=== PATIENT | male | born 1985 | race Caucasian/White ===

== ENCOUNTER 2017-08-08 10:08 | Observation (INO) | payer OTHER ==
--- NOTE | 2017-08-08 12:33 | RAD ---
INDICATION: Pain and swelling right leg. COMPARISON: Correlation is made with a prior study from November 26, 2014. TECHNIQUE: Multiple real-time, color flow and Doppler tracings of the right lower extremity were obtained. FINDINGS: The right common femoral profunda femoral and femoral veins are all partially compressible with peripheral thrombus possibly chronic although an acute component cannot be excluded. The popliteal and posterior tibial veins appear patent without thrombus. One of the peroneal veins appears occluded. On examining the left common femoral vein for comparison note is made of partially occlusive thrombus extends into the profunda femoral and femoral veins. The proximal and mid femoral veins are occluded which has progressed from the prior study. The popliteal vein is patent. The calf veins are not well visualized. IMPRESSION: EXTENSIVE BILATERAL LOWER EXTREMITY DEEP VENOUS THROMBUS DESCRIBED INVOLVING A LARGE PART OF THE DEEP VENOUS SYSTEM. SOME OF THIS APPEARS CHRONIC ALTHOUGH THERE IS PROGRESSION IN THE LEFT FEMORAL VEIN SUGGESTING AN ACUTE COMPONENT.
[2017-08-08 15:59] LABS: ABS Basophils 0 10^3/ul (0-0.2); ABS Eosinophils 0.1 10^3/ul (0-0.6); ABS Lymphocytes 1.1 10^3/ul (1.0-4.8); ABS Monocytes 0.3 10^3/ul (0-0.8); ABS Neutrophils 2.2 10^3/ul (1.5-7.7); ABS Nucleated RBC 0 10^3/ul; Eosinophil % 3.5 % (0-6); Hematocrit 42 % (42-52); Lymphocyte % 29.7 % (25-47); Mean Corpuscular HGB Conc 34 g/dl (31-36); Mean Corpuscular Hemoglobin 32 pg (27-31); Mean Corpuscular Volume 94 fL (80-94); Nucleated Red Blood Cells % 0.1; Platelet Count 133 10^3/ul (150-450); Red Blood Count 4.43 10^6/ul (4.0-5.4); Red Cell Distribution Width 14 % (10.5-15); White Blood Count 3.9 10^3/ul (3.5-10.8)
[2017-08-08] MEDS ORDERED: Acetaminophen TAB* 325 MG PO PRN (16:08)
[2017-08-08] MEDS ORDERED: Ondansetron ODT TAB* 4 MG SL PRN (16:09)
[2017-08-08 16:12] LABS: INR 1.02 (0.77-1.02)
[2017-08-08 16:24] LABS: EGFR Non-African American 107.3 (>60)
[2017-08-08] MEDS ORDERED: Iohexol 350* (CONTRAST) 500 ML MDV IV ONE (16:26)
[2017-08-08] MEDS ORDERED: Warfarin TAB(*) 5 MG PO SCH (17:00)
--- NOTE | 2017-08-08 17:16 | RAD ---
HISTORY: Shortness of breath, DVT COMPARISONS: None TECHNIQUE: Multiple contiguous axial CT scans of the chest were obtained after the administration of nonionic intravenous contrast, timed to the pulmonary arterial phase of contrast enhancement.. Coronal and sagittal multiplanar reformations are also submitted for review. FINDINGS: NECK AND THYROID: The lower neck and thyroid are unremarkable. CHEST WALL: There is no lower cervical, axillary, or supraclavicular lymphadenopathy by size criteria. HEART AND PERICARDIUM: The heart is unremarkable. AORTA AND PULMONARY VASCULATURE: There is no pulmonary arterial filling defect to suggest pulmonary embolism. There is no linear filling defect within the aorta to suggest aortic dissection. MEDIASTINUM: There is no mediastinal lymphadenopathy by size criteria. SOFIA: There is no hilar lymphadenopathy by size criteria. AIRWAY AND ESOPHAGUS: The airway is unremarkable, without endobronchial filling defect. The esophagus is grossly normal. LUNG PARENCHYMA: The lungs are clear. PLEURA: No pleural abnormalities are noted. UPPER ABDOMEN: The upper abdomen is unremarkable. BONES AND SOFT TISSUES: No bone or soft tissue abnormalities are noted. OTHER: None. IMPRESSION: NO PULMONARY ARTERIAL FILLING DEFECT TO SUGGEST PULMONARY EMBOLISM.
--- NOTE | 2017-08-08 17:58 | ED ---
Eliezer Bhatt Stephanie, scribed for Tyree Salcido MD on 08/08/17 at 1132 . Lower Extremity - HPI Summary HPI Summary: The pt is a 32 y/o M [facility] [employer] to the ED with c/o R LE pain that began on 08/03/17. Symptoms include R LE edema and bilateral LE skin discoloration and redness. The pt states he has hx of DVT. His symptoms have been chronic and have gotten progressively worse over the past few years. He states he has hx of 18 blood clots in 12 years. - History of Current Complaint Chief Complaint: EDExtremityLower Stated Complaint: RT LOWER EXTREMITY SWELLING Time Seen by Provider: 08/08/17 11:07 Hx Obtained From: Patient Onset of Pain: Days Onset/Duration: Days Severity Currently: Moderate Pain Intensity: 6 Pain Scale Used: 0-10 Numeric Timing: Constant Location: Is Discrete @ - LE bilaterally Associated Signs And Symptoms: Positive: Swelling, Redness, Other - discoloration Aggravating Factor(s): Ambulation Alleviating Factor(s): Elevation Able to Bear Weight: Yes - Allergies/Home Medications Allergies/Adverse Reactions: Allergies Allergy/AdvReac Type Severity Reaction Status Date / Time diphtheria toxoid,fluid Allergy Anaphylatic Verified 08/08/17 11:58 Shock Penicillins Allergy Unknown Verified 08/08/17 11:58 Reaction Details Pertussis Vaccines Allergy Anaphylatic Verified 08/08/17 11:58 Shock Home Medications: Home Medications Amitriptyline TAB* [Elavil TAB*] 50 mg PO BEDTIME 08/08/17 [History Confirmed ] Apixaban* [Eliquis*] 5 mg PO BID 08/08/17 [History Confirmed 08/08/17] PMH/Surg Hx/FS Hx/Imm Hx Endocrine/Hematology History: Denies: Hx Diabetes Cardiovascular History: Denies: Hx Congestive Heart Failure Sensory History: Denies: Hx Legally Blind EENT History: Denies: Hx Deafness Infectious Disease History: Yes Infectious Disease History: Denies: Traveled Outside the [place] in Last 30 Days - Family History Known Family History: Negative: Renal Disease - Social History Occupation: Unemployed Lives: Prison [facility] correction[facility] facility Alcohol Use: None Alcohol Amount: hx alcohol abuse Hx Substance Use: No Substance Use Type: Reports: None Hx Tobacco Use: Yes Smoking Status (MU): Former Smoker Review of Systems Negative: Fever Positive: Edema - R LE, Other - LE redness and discoloration Negative: Slurred Speech All Other Systems Reviewed And Are Negative: Yes Physical Exam - Summary Physical Exam Summary: Appearance: The patient is well-nourished in no acute distress and in no acute pain. Skin: The skin is warm and dry and skin color reflects adequate perfusion. HEENT: The head is normocephalic and atraumatic. The pupils are equal and reactive. The conjunctivae are clear and without drainage. Nares are patent and without drainage. Mouth reveals moist mucous membranes and the throat is without erythema and exudate. The external ears are intact. The ear canals are patent and without drainage. The tympanic membranes are intact. Neck: the neck is supple with full range of motion and non-tender. There are no carotid bruits. There is no neck vein distension. Respiratory: Chest is non-tender. Lungs are clear to auscultation and breath sounds are symmetrical and equal. Cardiovascular: Heart is regular rate and rhythm. There is no murmur or rub auscultated. There is no peripheral edema and pulses are symmetrical and equal. Abdomen: The abdomen is soft and non-tender. There are normal bowel sounds heard in all four quadrants and there is no organomegaly palpated. Musculoskeletal: There is no back tenderness noted. Extremities are non-tender with full range of motion. He has chronic venous stasis changes in his bilateral LE, healed ulcers, bounding dorsalis pedis pulses bilaterally, pitting edema on R LE. Neurological: Patient is alert and oriented to person, place and time. The patient has symmetrical motor strength in all four extremities. Cranial nerves are grossly intact. Deep tendon reflexes are symmetrical and equal in all four extremities. Psychiatric: The patient has an appropriate affect and does not exhibit any anxiety or depression. Triage Information Reviewed: Yes Vital Signs On Initial Exam: Initial Vitals Temp Pulse Resp BP Pulse Ox 97.9 F 70 16 117/85 98 08/08/17 10:15 08/08/17 10:15 08/08/17 10:15 08/08/17 10:15 08/08/17 10:15 Vital Signs Reviewed: Yes Diagnostics - Vital Signs Vital Signs Temp Pulse Resp BP Pulse Ox 08/08/17 11:13 74 98 08/08/17 10:15 97.9 F 70 16 117/85 98 - Laboratory Lab Results: Lab Results 08/08/17 08/08/17 08/08/17 Range/Units 15:50 15:50 15:50 WBC 3.9 (3.5-10.8) 10^3/ul RBC 4.43 (4.0-5.4) 10^6/ul Hgb 14.0 (14.0-18.0) g/dl Hct 42 (42-52) % MCV 94 (80-94) fL MCH 32 H (27-31) pg MCHC 34 (31-36) g/dl RDW 14 (10.5-15) % Plt Count 133 L (150-450) 10^3/ul MPV 9.0 (7.4-10.4) um3 Neut % (Auto) 57.9 (38-83) % Lymph % (Auto) 29.7 (25-47) % [place] % (Auto) 8.4 H (0-7) % Eos % (Auto) 3.5 (0-6) % Baso % (Auto) 0.5 (0-2) % Absolute Neuts (auto) 2.2 (1.5-7.7) 10^3/ul Absolute Lymphs (auto) 1.1 (1.0-4.8) 10^3/ul Absolute Monos (auto) 0.3 (0-0.8) 10^3/ul Absolute Eos (auto) 0.1 (0-0.6) 10^3/ul Absolute Basos (auto) 0 (0-0.2) 10^3/ul Absolute Nucleated RBC 0 10^3/ul Nucleated RBC % 0.1 INR (Anticoag Therapy) 1.02 (0.77-1.02) Sodium 140 (139-145) mmol/L Potassium 3.6 (3.5-5.0) mmol/L Chloride 102 (101-111) mmol/L Carbon Dioxide 31 (22-32) mmol/L Anion Gap 7 (2-11) mmol/L BUN 16 (6-24) mg/dL Creatinine 0.84 (0.67-1.17) mg/dL Est GFR ( Amer) 138.0 (>60) Est GFR (Non-Af Amer) 107.3 (>60) BUN/Creatinine Ratio 19.0 (8-20) Glucose 104 H (70-100) mg/dL Calcium 9.6 (8.6-10.3) mg/dL Total Bilirubin 0.80 (0.2-1.0) mg/dL AST 27 (13-39) U/L ALT 17 (7-52) U/L Alkaline Phosphatase 61 (34-104) U/L Total Protein 7.1 (6.4-8.9) g/dL Albumin 4.3 (3.2-5.2) g/dL Globulin 2.8 (2-4) g/dL Albumin/Globulin Ratio 1.5 (1-3) Result Diagrams: 08/08/17 15:50 08/08/17 15:50 Lab Statement: Any lab studies that have been ordered have been reviewed, and results considered in the medical decision making process. - Additional Comments Diagnostic Additional Comments: Venous Doppler Study reveals: EXTENSIVE BILATERAL LOWER EXTREMITY DEEP VENOUS THROMBUS DESCRIBED INVOLVING A LARGE PART OF THE DEEP VENOUS SYSTEM. SOME OF THIS APPEARS CHRONIC ALTHOUGH THERE IS PROGRESSION IN THE LEFT FEMORAL VEIN SUGGESTING AN ACUTE COMPONENT. ED physician has reviewed this report. Re-Evaluation - Re-Evaluation First Eval Re-Evaluation Time: 15:18 Change: Unchanged - ED physician discussed plan of admission with the pt. Lower Extremity Course/Dx - Course Course Of Treatment: Mr. Ayon appears on U/S to be extending his DVT while on elliquis. The hospitalist service is seeing him for admission at this time. - Diagnoses Provider Diagnoses: DVT (deep venous thrombosis) - Physician Notifications Discussed Care Of Patient With: Erwin Lu Time Discussed With Above Provider: 15:20 Instructed by Provider To: Admit As Inpatient Discharge - Sign-Out/Discharge Documenting (check all that apply): Discharge/Admit/Transfer - Admit - Discharge Plan Condition: Stable Disposition: ADMITTED TO [facility] Referrals: Lorena Lei [Primary Care Provider] - - Billing Disposition and Condition Condition: STABLE [place] [facility] [place] The documentation as recorded by the Eliezer barnes Stephanie accurately reflects the service I personally performed and the decisions made by , Tyree Salcido MD.
[2017-08-08] MEDS: Enoxaparin(*) 80 MG/0.8 ML SYR SUBCUT SCH (19:56)
[2017-08-08] MEDS ORDERED: Amitriptyline TAB* 50 MG PO SCH (21:00)
[2017-08-08] MEDS ORDERED: Enoxaparin(*) 80 MG/0.8 ML SYR SUBCUT SCH (21:00)
--- NOTE | 2017-08-09 02:11 | HP ---
AMENDED REPORT NOW INCLUDES COSIGNER DESIGNATION CC: Providers at [facility]; ASAD Lei HISTORY AND PHYSICAL: DATE OF ADMISSION: 08/08/17 ATTENDING PHYSICIAN: Dr. Lu * (dictation provided by Mikayla Aguilar NP). CHIEF COMPLAINT: Shortness of breath and pain in bilateral lower extremities. HISTORY OF PRESENT ILLNESS: Mr. Aoyn is a 32-year-old male with a past medical history of DVT starting at age 21 with recurrent DVT approximately 8 times over the past 11 years. He reports that he had been on warfarin, but did not like being "poked with needles." He was then transitioned over to Xarelto in 2014. He was off of medication for a period of time due to problems with alcoholism and he is now at [facility]. He was put on Eliquis on 06/12/17. He states that he has been taking that regularly as monitored by the [facility]'s medical staff. His last dose was this morning. He reports that over the past week or so, he has been noting a little bit more pain in his right lower extremity, but he thought this was just secondary to increased activity level as part of [facility]' s exercising program. Yesterday was outside and when he came in, he felt more short of breath than usual and then began to have pain in his right lower extremity radiating from his calf up into his thigh consistent with his previous history of DVT. He reports no further shortness of breath since that episode. He has had no chest pain. He denies any nausea, vomiting, diarrhea, abdominal pain. He has been eating and drinking normally. In the emergency room, Mr. Ayon had a venous Doppler study which is read in comparison with his previous venous Doppler from our facility in 2014. The patient states that this was his last venous Doppler. Today's study shows "extensive bilateral lower extremity deep venous thrombosis as described involving a large part of the deep venous system. Some of this appears chronic although there is progression in the left femoral vein suggesting an acute component." His labs were unremarkable. His vital signs are stable. He is not tachycardic. PAST MEDICAL HISTORY: 1. DVTs. 2. Multilple venous ulcers bilateral lower extremities, now healed. MEDICATIONS: Are: 1. Eliquis 5 mg p.o. b.i.d. 2. Amitriptyline 50 mg p.o. at bedtime. ALLERGIES: DIPHTHERIA TOXOID, PENICILLINS, and PERTUSSIS VACCINE. FAMILY HISTORY: The patient reports that his mother related to lung cancer. His dad is alive and well. His family has never known of any other members who have had problems with unusual clotting. SOCIAL HISTORY: The patient is about a quarter pack a day smoker. He was an alcoholic, but is now incarcerated. He has reported drug use in the past. He has one daughter; she is 9 years old. She has no history of clotting disorders as far as he is aware. REVIEW OF SYSTEMS: A 14-point review of systems was completed with Mr. Ayon and all those not mentioned above were negative including no cough and no hemoptysis. PHYSICAL EXAMINATION GENERAL: Mr. Ayon is sitting in the bed with his guards at the bedside. He is in no acute distress. VITAL SIGNS: Temperature 97.9, pulse rate is 78, respiratory rate is 16, O2 saturation 94% on room air, blood pressure 126/85. LUNGS: Clear to auscultation bilaterally with no accessory muscle use and good aeration. HEART: S1, S2. No murmur, rub, or gallop and regular. ABDOMEN: Soft and nontender with bowel sounds positive x4. EXTREMITIES: No cyanosis. Positive for what appeared to be venous stasis changes and multiple areas of scarring with edema on bilateral lower extremities extending from the foot up to approximately three quarters way up the calf. The patient states that this is all at baseline with no change. The patient has no tenderness to palpation on either extremity. No warmth. No apparent asymmetrical swelling. NEURO: He is alert, he is oriented x3. He moves all extremities equally. There is no facial asymmetry or focal weakness. Extraocular movements are intact. DIAGNOSTIC STUDIES/LAB DATA: WBC 3.9, hemoglobin 14.0, hematocrit 42, platelet count 133. INR of 1.02. Sodium 140, potassium 3.6, chloride 102, serum bicarbonate 31, BUN 16, creatinine 0.84, glucose 104. ASSESSMENT: Mr. Ayon is a 32-year-old male with a past medical history of multiple deep venous thrombosis with no known clotting problem, who presents to the hospital today with concern for failure of Eliquis therapy and worsening symptoms of deep venous thrombosis confirmed with likely extension of DVT in the left femoral vein. Our plans are for observation in the hospital for the followin. Deep venous thrombosis. The patient has had a failure of Eliquis therapy in a monitored setting. He will need to switch back to warfarin and in the meantime, he will need bridging therapy. I have spoken with Dr. Benavidez from Hematology and he confirms that the patient would be appropriate for Lovenox therapy. I will start Lovenox therapy now at his recommendation. He states that it would be reasonable to wait at least 6 hours from the patient's last dose of Eliquis. Plan to start lovenox at 5 p.m. today. He will also start warfarin 5 mg today. The patient states that he was therapeutic on 5 mg in the past. The patient states that he has never had a full hematology workup. He was seen by a physician at [facility] one time and did have labs drawn at that point, but he was not able to follow up with that physician. At this point , we have ordered labs that are not affected by anticoagulant usage including antithrombin activity, antithrombin antigen, prothrombin, antiphospholipid antibody, and factor V Leiden. The patient would be recommended to follow up with Dr. Benavidez at discharge from the facility for further evaluation hematologically. At this point, the patient is chest pain free. He is not short of breath. His vitals are stable; however, he did complain of shortness of breath at the beginning of this more acute episode yesterday after activity. I think given his extensive DVT, he warrants a CTA of the chest and that has been ordered as this would help with prognostication if he were to have a greater embolism load in the lung. 2. DVT prophylaxis again with Lovenox and warfarin. 3. Code status is full code. TIME SPENT: Approximately 60 minutes was spent on the admission of this patient ; more than half time was spent with the patient at the bedside reviewing the events leading up to this hospitalization, performing the physical examination, and reviewing my plan of care. MIKAYLA AGUILAR NP [id number]/[facility] #: [id number] DAVIDE
[2017-08-09] MEDS: Enoxaparin(*) 80 MG/0.8 ML SYR SUBCUT SCH (05:25)
[2017-08-09 11:22] VITALS: BP 102/61
--- NOTE | 2017-08-10 01:12 | DS ---
CC: [facility], Lorena Lei NP; Dr. Benavidez DISCHARGE SUMMARY: DATE OF ADMISSION: 08/08/17 DATE OF DISCHARGE: 08/09/17 PRIMARY CARE PROVIDER: [facility], Lorena Lei NP. [employer] SENIOR SPECIALIST: Dr. Benavidez. DISCHARGE DIAGNOSIS: Recurrent bilateral deep venous thromboses. SECONDARY DIAGNOSES: 1. Prior history of deep venous thromboses and multiple venous insufficiency ulcers on bilateral low er extremities. 2. Eliquis failure. MEDICATION LIST: Amitriptyline 50 mg p.o. at bedtime. NEW MEDICATIONS: 1. Lovenox 80 mg subcutaneously q.12 hours for at least 5 days until INR greater than 2 for 48 hours . 2. Warfarin 5 mg p.o. daily adjusted according to his INR. 3. Acetaminophen 650 mg p.o. q.6 hours p.r.n. pain. HOSPITAL COURSE: Mr. Ayon is a 32-year-old male with past medical history as stated above who was sent to the emergency room due to shortness of breath and pain in bilateral lower extremities. T he patient states that starting at age 21, he had multiple episodes of DVT approximately 8 times over the past 11 years. He was being treated before with warfarin, but did not like the frequent blood t ests, so in 2014 he was transitioned to Xarelto. He was off of treatment for a period of time due to problems with alcohol abuse and he is now at [facility] where he was started on Eliquis on 06/12/17. A s per report, the patient has been taking it regularly, but he developed lower extremity pain that he feels is similar to his prior episodes of DVT so he was sent to the emergency room for further evalu ation. For more details about his presentation, I refer you to his history and physical. The patient had lower extremity Doppler that showed extensive bilateral lower extremity DVT involving a large part of the deep venous system. Some of these appears chronic also there is progression in the left femoral vein suggesting an acute component. The patient had CT of the chest performed and i t showed no pulmonary arterial filling defect to suggest pulmonary embolism. Hypercoagulable workup was sent and is pending at the time of this dictation. The patient is being d ischarged on Lovenox and morphine and he will need to follow up with Hematology as an outpatient. PHYSICAL EXAMINATION: Vital Signs: Temperature is 98.2, heart rate is 73, respiratory rate is 18, o xygen saturation is 98% on room air, and blood pressure is 102/61. General: The patient is a pleasa nt young gentleman, sitting up in bed, in no acute distress. CVS: Normal S1, S2. Regular rate and rhythm. Chest: Breath sounds present bilaterally with no added sounds. Extremities: There is no s ignificant pitting edema, but there are significant chronic skin changes and healed ulcers in the mal leolar areas. Neuro: He is alert, awake, oriented x3. Able to move all 4 extremities. DIET: Regular diet. ACTIVITIES: As tolerated. DISPOSITION: [facility]. STATUS IN THE HOSPITAL: Observation. Please keep in mind that this is a summarized version of this patient's hospital stay. If you need m ore information, please feel free to call me at [phone] or please obtain the full medical record s. TIME SPENT: Approximately 45 minutes were spent to complete this discharge. [id number]/[facility] #: [id number]
[2017-08-11 20:32] LABS: Prothrombin 20210 Mutation Negative (Negative)
== END 2017-08-09 15:00 ==
LOC: ED 10:08 → MED 16:10 → INTOOBSV 16:10 → EEVIPCON 16:10
PROVIDERS: ADMIT Student in an Organized Health Care Education/Training Program; ATTEND Internal Medicine
DX: I82.413 Acute embolism and thrombosis of femoral vein, bilateral (principal); L97.929 Non-pressure chronic ulcer of unspecified part of left lower leg with unspecified severity; L97.919 Non-pressure chronic ulcer of unspecified part of right lower leg with unspecified severity; I87.2 Venous insufficiency (chronic) (peripheral); F10.20 Alcohol dependence, uncomplicated; Z79.01 Long term (current) use of anticoagulants; Z79.899 Other long term (current) drug therapy; R06.02 Shortness of breath; F17.210 Nicotine dependence, cigarettes, uncomplicated
CPT/HCPCS: 36415; 71275; 80053; 81240; 85025; 85220; 85300; 85301; 85610; 86147; 96372; 99284; A9270-GY; G0378; J1650; Q9967